=== PATIENT | male | born 1965 | race Caucasian/White ===

== ENCOUNTER 2020-05-20 09:24 | Outpatient (CLI) | payer BC | END 2020-05-20 09:25 | disposition home or self-care (01) | LOC: BICRAD 09:24 | PROVIDERS: ATTEND Specialist | DX: S49.91XA Unspecified injury of right shoulder and upper arm, initial encounter (principal) ==

== ENCOUNTER 2020-06-13 07:24 | Outpatient (CLI) | payer BC | END 2020-06-13 07:25 | disposition home or self-care (01) | LOC: BICMRI 07:24 | PROVIDERS: ATTEND Specialist | DX: S49.91XA Unspecified injury of right shoulder and upper arm, initial encounter (principal); M75.101 Unspecified rotator cuff tear or rupture of right shoulder, not specified as traumatic; M19.011 Primary osteoarthritis, right shoulder ==